=== PATIENT | female | born 1965 | race Caucasian/White ===

== ENCOUNTER → 2016-05-04 | Outpatient (REF) | payer BC ==
[~2016-05-04] MED LIST: EFFE75CA75 OR; LEVO2TA PO; SYNT175T PO; YAZ3TAB2 PO
== END ==
LOC: M SFHCPLAZ 10:29
PROVIDERS: ATTEND Family Medicine
DX: M79.644 Pain in right finger(s) (principal)

== ENCOUNTER → 2016-05-04 | Outpatient (CLI) | payer BC ==
--- NOTE | 2016-05-04 11:55 | REP ---
Clinical: Pain to the digits. Technique: AP, lateral views of the right and left hand. Findings: Mild diffuse arthritic degenerative changes to the interphalangeal joints and first metacarpophalangeal joint includes joint space narrowing and subtle subchondral sclerosis. No acute fracture or dislocation. Impression: Mild diffuse arthritic changes to the interphalangeal joints. Signed by Rolf Contreras MD 05/04/2016 11:47 A
== END | disposition home or self-care (01) ==
LOC: M RAD 11:14
PROVIDERS: ATTEND Family Medicine
DX: M79.644 Pain in right finger(s) (principal); M19.041 Primary osteoarthritis, right hand; M19.042 Primary osteoarthritis, left hand; M18.0 Bilateral primary osteoarthritis of first carpometacarpal joints

== ENCOUNTER → 2016-05-29 | Outpatient (REF) | payer BC | LOC: M SFHCPLAZ 07:53 | PROVIDERS: ATTEND Physician Assistant | DX: E78.4 Other hyperlipidemia (principal) ==

== ENCOUNTER → 2016-06-12 | Outpatient (REF) | payer BC | LOC: M LAB REF 12:13 | PROVIDERS: ATTEND Physician Assistant Medical | DX: J02.9 Acute pharyngitis, unspecified (principal) ==

== ENCOUNTER → 2016-06-15 | Outpatient (REF) | payer BC ==
[2016-06-15 12:20] LABS: ALBUMIN 3.7 GM/DL (3.2-5.2); ALBUMIN/GLOBULIN RATIO 1.09 (1.00-1.93); ALKALINE PHOSPHATASE 82 U/L (45-117); ALT/SGPT 20 U/L (12-78); ANION GAP 7 MEQ/L (8-16); AST/SGOT 16 U/L (15-37); BILIRUBIN,TOTAL 0.4 MG/DL (0.2-1.0); BLOOD UREA NITROGEN 22 MG/DL (7-18); CALCIUM LEVEL 8.5 MG/DL (8.5-10.1); CARBON DIOXIDE LEVEL 26 MEQ/L (21-32); CHLORIDE LEVEL 106 MEQ/L (98-107); CHOLESTEROL LEVEL 201 MG/DL (<200); CREATININE FOR GFR 0.77 MG/DL (0.55-1.02); GLOMERULAR FILTRATION RATE > 60.0 (>51); GLUCOSE, FASTING 100 MG/DL (70-105); POTASSIUM SERUM 4.2 MEQ/L (3.5-5.1); SODIUM LEVEL 139 MEQ/L (136-145); TOTAL PROTEIN 7.1 GM/DL (6.4-8.2); TRIGLYCERIDES LEVEL 107 MG/DL (<150)
== END ==
LOC: M LABDRAW1 11:22
PROVIDERS: ATTEND Physician Assistant
DX: E78.4 Other hyperlipidemia (principal)

== ENCOUNTER → 2016-08-02 | Outpatient (REF) | payer BC ==
[2016-08-02 14:27] LABS: FREE T4 1.67 NG/DL (0.76-1.46)
== END ==
LOC: M LABDRAW1 12:01
PROVIDERS: ATTEND Internal Medicine Endocrinology, Diabetes & Metabolism
DX: E89.0 Postprocedural hypothyroidism (principal)

== ENCOUNTER → 2016-08-02 | Outpatient (REF) | payer BC ==
[2016-08-02 13:44] LABS: BASO % 0.3 % (0.0-1.0); EOS # 0.2 K/mm3 (0.0-0.50); EOS % 3.8 % (0.0-3.0); LARGE UNSTAINED CELL # 0.1 K/mm3 (0.0-0.4); LARGE UNSTAINED CELL % 1.7 % (0.0-4.0); LYMPH # 1.6 K/mm3 (1.5-4.5); LYMPH % 30.4 % (24.0-44.0); MEAN CORPUSCULAR HGB CONC 32.8 g/dl (32.0-36.5); MEAN CORPUSCULAR VOLUME 88.5 fl (80.0-96.0); MONO # 0.3 K/mm3 (0.0-0.8); MONO % 5.8 % (0.0-5.0); NEUTROPHILS # 3.1 K/mm3 (1.8-7.7); NEUTROPHILS % 57.9 % (36.0-66.0); PLATELET COUNT, AUTOMATED 291 k/mm3 (150-450); RED CELL DISTRIBUTION WIDTH 13.6 % (11.5-14.5); WHITE BLOOD COUNT 5.4 K/mm3 (4.0-10.0)
[2016-08-02 13:59] LABS: VITAMIN B12 LEVEL 544 PG/ML (247-911)
[2016-08-02 14:01] LABS: ALBUMIN 3.6 GM/DL (3.2-5.2); ALKALINE PHOSPHATASE 60 U/L (45-117); ALT/SGPT 21 U/L (12-78); ANION GAP 8 MEQ/L (8-16); AST/SGOT 17 U/L (15-37); BILIRUBIN,TOTAL 0.4 MG/DL (0.2-1.0); BLOOD UREA NITROGEN 10 MG/DL (7-18); CALCIUM LEVEL 8.8 MG/DL (8.5-10.1); CARBON DIOXIDE LEVEL 27 MEQ/L (21-32); CHLORIDE LEVEL 104 MEQ/L (98-107); CREATININE FOR GFR 0.68 MG/DL (0.55-1.02); FERRITIN 123 NG/ML (8-252); GLOMERULAR FILTRATION RATE > 60.0 (>51); GLUCOSE, FASTING 80 MG/DL (70-105); MAGNESIUM LEVEL 2.4 MG/DL (1.8-2.4); PERCENT SATURATION 23.2 % (13.2-37.4); PHOSPHORUS LEVEL 3.3 MG/DL (2.5-4.9); POTASSIUM SERUM 4.4 MEQ/L (3.5-5.1); SODIUM LEVEL 139 MEQ/L (136-145); TOTAL IRON BINDING CAPACITY 207 UG/DL (250-450); TOTAL PROTEIN 6.6 GM/DL (6.4-8.2)
[2016-08-03 10:10] LABS: PRETREATED FOLATE FOR RBCFOL 13.4 NG/ML
== END ==
LOC: M LABDRAW1 12:02
PROVIDERS: ATTEND Surgery
DX: K91.2 Postsurgical malabsorption, not elsewhere classified (principal); Z98.84 Bariatric surgery status

== ENCOUNTER → 2016-10-16 | Outpatient (REF) | payer BC ==
[2016-10-16 12:46] LABS: FREE T4 1.68 NG/DL (0.76-1.46)
== END ==
LOC: M LABDRAW1 10:56
PROVIDERS: ATTEND Internal Medicine Endocrinology, Diabetes & Metabolism
DX: E89.0 Postprocedural hypothyroidism (principal)

== ENCOUNTER → 2016-12-11 | Outpatient (REF) | payer BC ==
[2016-12-11 22:41] LABS: FREE T4 1.52 NG/DL (0.76-1.46)
== END ==
LOC: M LABDRAW1 10:30
PROVIDERS: ATTEND Internal Medicine Endocrinology, Diabetes & Metabolism
DX: E89.0 Postprocedural hypothyroidism (principal)

== ENCOUNTER → 2016-12-11 | Outpatient (REF) | payer BC ==
[2016-12-11 11:39] LABS: BASO # 0.1 10^3/uL (0.0-0.2); BASO % 1.1 % (0.0-1.0); EOS # 0.2 10^3/uL (0.0-0.50); EOS % 4.6 % (0.0-3.0); IMMATURE GRANULOCYTE % 0.2 % (0-0); LYMPH # 1.8 10^3/uL (1.5-4.5); LYMPH % 40.1 % (24.0-44.0); MEAN CORPUSCULAR HEMOGLOBIN 29.6 pg (27.0-33.0); MEAN CORPUSCULAR HGB CONC 33.6 g/dl (32.0-36.5); MEAN CORPUSCULAR VOLUME 88.1 fl (80.0-96.0); MONO # 0.3 10^3/uL (0.0-0.8); MONO % 6.9 % (0.0-5.0); NEUTROPHILS # 2.1 10^3/uL (1.8-7.7); NEUTROPHILS % 47.1 % (36.0-66.0); PLATELET COUNT, AUTOMATED 305 10^3/uL (150-450); RED CELL DISTRIBUTION WIDTH 12.5 % (11.5-14.5); WHITE BLOOD COUNT 4.4 10^3/uL (4.0-10.0)
[2016-12-11 11:40] LABS: ADD MANUAL DIFFER NO; DIFF SLIDE NUMBER 189
[2016-12-11 12:32] LABS: VITAMIN B12 LEVEL > 2000 PG/ML (247-911)
[2016-12-11 12:49] LABS: ALBUMIN 3.6 GM/DL (3.2-5.2); ALBUMIN/GLOBULIN RATIO 1.13 (1.00-1.93); ALKALINE PHOSPHATASE 69 U/L (45-117); ALT/SGPT 18 U/L (12-78); ANION GAP 6 MEQ/L (8-16); AST/SGOT 10 U/L (15-37); BILIRUBIN,TOTAL 0.5 MG/DL (0.2-1.0); BLOOD UREA NITROGEN 15 MG/DL (7-18); CALCIUM LEVEL 8.9 MG/DL (8.5-10.1); CARBON DIOXIDE LEVEL 27 MEQ/L (21-32); CHLORIDE LEVEL 106 MEQ/L (98-107); CREATININE FOR GFR 0.74 MG/DL (0.55-1.02); FERRITIN 133 NG/ML (8-252); GLOMERULAR FILTRATION RATE > 60.0 (>51); GLUCOSE, FASTING 93 MG/DL (70-105); MAGNESIUM LEVEL 2.3 MG/DL (1.8-2.4); PHOSPHORUS LEVEL 3.8 MG/DL (2.5-4.9); POTASSIUM SERUM 4.1 MEQ/L (3.5-5.1); SODIUM LEVEL 139 MEQ/L (136-145); TOTAL PROTEIN 6.8 GM/DL (6.4-8.2)
[2016-12-14 12:27] LABS: PRETREATED FOLATE FOR RBCFOL 15.1 NG/ML
== END ==
LOC: M LABDRAW1 10:27
PROVIDERS: ATTEND Surgery
DX: K91.2 Postsurgical malabsorption, not elsewhere classified (principal); E61.1 Iron deficiency; E55.9 Vitamin D deficiency, unspecified; Z98.84 Bariatric surgery status

== ENCOUNTER → 2017-02-13 | Outpatient (REF) | payer BC ==
[~2017-02-13] MED LIST changes: +CALC500T49 PO; +DULO1CAP3 PO; +FERR325T3 PO; +LEVO125T41 PO; +MULTLIQ7 PO; +PROT1TAB2 PO; +VITA100L PO; +VITA400T13 PO
[2017-02-13 16:11] LABS: FREE T4 1.22 NG/DL (0.76-1.46)
== END ==
LOC: M LABDRAW1 13:46
PROVIDERS: ATTEND Nurse Practitioner Family
DX: E89.0 Postprocedural hypothyroidism (principal)

== ENCOUNTER 2017-02-17 00:58 | Emergency (ER) | payer BC ==
[~2017-02-17] VITALS: Ht 172.7 cm; Wt 77.3 kg
[~2017-02-17 00:58] MED LIST changes: -CALC500T49 PO; -DULO1CAP3 PO; -FERR325T3 PO; -LEVO125T41 PO; -MULTLIQ7 PO; -PROT1TAB2 PO; -VITA100L PO; -VITA400T13 PO
[2017-02-17] MEDS ORDERED: LEVO125T41 PO (01:10)
[2017-02-17] MEDS ORDERED: DULO1CAP3 PO (01:10)
[2017-02-17] MEDS ORDERED: MULTLIQ7 PO (01:12)
[2017-02-17] MEDS ORDERED: CALC500T49 PO (01:12)
[2017-02-17] MEDS ORDERED: VITA400T13 PO (01:12)
[2017-02-17] MEDS ORDERED: VITA100L PO (01:12)
[2017-02-17] MEDS ORDERED: FERR325T3 PO (01:12)
[2017-02-17 02:00] LABS: BASO % 0.5 % (0.0-1.0); EOS # 0.2 10^3/uL (0.0-0.50); EOS % 2.1 % (0.0-3.0); IMMATURE GRANULOCYTE % 0.3 % (0-0); LYMPH # 1.6 10^3/uL (1.5-4.5); LYMPH % 20.9 % (24.0-44.0); MEAN CORPUSCULAR HEMOGLOBIN 29.8 pg (27.0-33.0); MEAN CORPUSCULAR HGB CONC 33.6 g/dl (32.0-36.5); MEAN CORPUSCULAR VOLUME 88.6 fl (80.0-96.0); MONO # 0.5 10^3/uL (0.0-0.8); MONO % 6.3 % (0.0-5.0); NEUTROPHILS # 5.3 10^3/uL (1.8-7.7); NEUTROPHILS % 69.9 % (36.0-66.0); PLATELET COUNT, AUTOMATED 272 10^3/uL (150-450); RED CELL DISTRIBUTION WIDTH 12.1 % (11.5-14.5); WHITE BLOOD COUNT 7.6 10^3/uL (4.0-10.0)
[2017-02-17] MEDS ORDERED: NS 1,000 ML IV ONE (02:00)
[2017-02-17] MEDS ORDERED: GASTROGRAFIN SOLUTION 30ML PO ONE (02:20)
[2017-02-17] MEDS ORDERED: GASTROGRAFIN SOLUTION 30ML (Q9963) As Ordered ONE (02:23)
[2017-02-17 02:26] LABS: ALBUMIN 3.6 GM/DL (3.2-5.2); ALBUMIN/GLOBULIN RATIO 0.97 (1.00-1.93); ALKALINE PHOSPHATASE 71 U/L (45-117); ALT/SGPT 36 U/L (12-78); ANION GAP 8 MEQ/L (8-16); AST/SGOT 45 U/L (7-37); BILIRUBIN,DIRECT < 0.1 MG/DL (0.0-0.2); BILIRUBIN,TOTAL 0.3 MG/DL (0.2-1.0); BLOOD UREA NITROGEN 21 MG/DL (7-18); CALCIUM LEVEL 8.8 MG/DL (8.5-10.1); CARBON DIOXIDE LEVEL 27 MEQ/L (21-32); CHLORIDE LEVEL 104 MEQ/L (98-107); CREATININE FOR GFR 0.77 MG/DL (0.55-1.02); GLOMERULAR FILTRATION RATE > 60.0 (>51); GLUCOSE, FASTING 111 MG/DL (70-105); SODIUM LEVEL 139 MEQ/L (136-145); TOTAL PROTEIN 7.3 GM/DL (6.4-8.2)
[2017-02-17] MEDS ORDERED: GASTROGRAFIN SOLUTION 30ML (Q9963) PO ONE (02:50)
[2017-02-17] MEDS ORDERED: ISOVUE-370 76% 100ML VIAL (Q9967) As Ordered ONE (03:20)
--- NOTE | 2017-02-17 05:20 | REPUSA ---
CLINICAL HISTORY: Abdominal pain. TECHNIQUE: Multiple axial, sagittal and coronal CT images were obtained through the abdomen and pelvi s after administration of oral and intravenous contrast material. COMMENTS: The liver is of uniform attenuation without mass or defect. There is no intra or extrahepatic biliary ductal dilatation. The spleen is normal. The gallbladder is surgically absent. The pancreas is of no rmal contour and attenuation characteristics. There is no evidence of adrenal mass. Both kidneys demonstrate prompt and equal nephrograms. The kidneys are normal in size, shape and conf iguration. There is no evidence of renal or ureteral mass. No renal or ureteral calculi are identifie d. There is no hydroureter or hydronephrosis. Surgical clips are noted in th association with the stomach. No evidence for appendicitis. There is no bowel wall thickening. No evidence for small or large benja l obstruction. There is no evidence of abdominal ascites or lymphadenopathy. There is no evidence of intrinsic or extrinsic bladder mass. There is no pelvic ascites or lymphadeno winston. The uterus and ovaries are grossly WNL. Images of the lung bases show no evidence of pleural or parenchymal mass. There are no pleural effusi ons. The bony structures are free of lytic or blastic lesions. Grade 1 anterolisthesis of L4 on L5 is not ed. IMPRESSION: No evidence of acute abdominal or pelvic pathology. Thank you for your kind referral of this patient.
[2017-02-17] MEDS ORDERED: PROT1TAB2 PO (05:39)
[2017-02-17 05:49] VITALS: BP 119/80
--- NOTE | 2017-02-17 08:06 | ECGEPIP ---
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
== END 2017-02-17 06:00 | disposition home or self-care (01) ==
LOC: M ED 00:58
DX: K29.00 Acute gastritis without bleeding (principal); Z98.84 Bariatric surgery status
CPT/HCPCS: 74177; 80048; 80076; 81001; 82550; 82553; 83690; 85025; 87086; 93005; 96360; 96361; 99284; Q9963; Q9967

== ENCOUNTER → 2017-04-22 | Outpatient (REF) | payer BC | LOC: M SFHCPLAZ 15:37 | DX: J02.9 Acute pharyngitis, unspecified (principal) ==

== ENCOUNTER → 2017-06-05 | Outpatient (REF) | payer BC ==
[2017-06-05 12:37] LABS: FREE T4 0.99 NG/DL (0.76-1.46)
== END ==
LOC: M LABDRAW1 11:59
DX: E89.0 Postprocedural hypothyroidism (principal)
CPT/HCPCS: 84443

== ENCOUNTER → 2017-06-05 | Outpatient (REF) | payer BC ==
[2017-06-05 12:18] LABS: BASO # 0.1 10^3/uL (0.0-0.2); EOS # 0.2 10^3/uL (0.0-0.50); EOS % 4.3 % (0.0-3.0); HEMATOCRIT 36.6 % (36.0-47.0); HEMOGLOBIN 12.2 g/dl (12.0-16.0); IMMATURE GRANULOCYTE % 0.2 % (0-3.0); LYMPH # 1.6 10^3/uL (1.5-4.5); LYMPH % 32.6 % (24.0-44.0); MEAN CORPUSCULAR HEMOGLOBIN 29.5 pg (27.0-33.0); MEAN CORPUSCULAR HGB CONC 33.3 g/dl (32.0-36.5); MEAN CORPUSCULAR VOLUME 88.6 fl (80.0-96.0); MONO # 0.3 10^3/uL (0.0-0.8); MONO % 6.6 % (0.0-5.0); NEUTROPHILS # 2.7 10^3/uL (1.8-7.7); NEUTROPHILS % 55.3 % (36.0-66.0); PLATELET COUNT, AUTOMATED 268 10^3/uL (150-450); RED BLOOD COUNT 4.13 10^6/uL (4.00-5.40); RED CELL DISTRIBUTION WIDTH 12.4 % (11.5-14.5); WHITE BLOOD COUNT 4.9 10^3/uL (4.0-10.0)
[2017-06-05 12:20] LABS: HEMATOCRIT 36.6 % (36.0-47.0)
[2017-06-05 12:34] LABS: ALBUMIN 3.6 GM/DL (3.2-5.2); ALBUMIN/GLOBULIN RATIO 1.13 (1.00-1.93); ALKALINE PHOSPHATASE 70 U/L (45-117); ALT/SGPT 20 U/L (12-78); ANION GAP 7 MEQ/L (8-16); AST/SGOT 12 U/L (7-37); BILIRUBIN,TOTAL 0.4 MG/DL (0.2-1.0); BLOOD UREA NITROGEN 14 MG/DL (7-18); CALCIUM LEVEL 8.9 MG/DL (8.5-10.1); CARBON DIOXIDE LEVEL 27 MEQ/L (21-32); CHLORIDE LEVEL 106 MEQ/L (98-107); CREATININE FOR GFR 0.81 MG/DL (0.55-1.30); FERRITIN 135 NG/ML (8-252); GLOMERULAR FILTRATION RATE > 60.0 (>51); GLUCOSE, FASTING 112 MG/DL (70-100); IRON (FE) 74 UG/DL (50-170); MAGNESIUM LEVEL 2.2 MG/DL (1.8-2.4); PERCENT SATURATION 31.9 % (13.2-45.0); PHOSPHORUS LEVEL 4.2 MG/DL (2.5-4.9); SODIUM LEVEL 140 MEQ/L (136-145); TOTAL IRON BINDING CAPACITY 232 UG/DL (250-450); TOTAL PROTEIN 6.8 GM/DL (6.4-8.2); VITAMIN B12 LEVEL > 2000 PG/ML (247-911)
[2017-06-05 14:16] LABS: ESTIMATED AVERAGE GLUCOSE 97 MG/DL (60-110)
[2017-06-07 12:10] LABS: PRETREATED FOLATE FOR RBCFOL 10.5 NG/ML; RBC FOLATE 602.5 NG/ML (280-791)
== END ==
LOC: M LABDRAW1 12:00
DX: K91.2 Postsurgical malabsorption, not elsewhere classified (principal); E55.9 Vitamin D deficiency, unspecified; Z98.84 Bariatric surgery status
CPT/HCPCS: 83550

== ENCOUNTER → 2017-12-04 | Outpatient (REF) | payer BC ==
[2017-12-04 11:05] LABS: BASO # 0.1 10^3/uL (0.0-0.2); BASO % 1.1 % (0.0-1.0); EOS # 0.2 10^3/uL (0.0-0.50); HEMATOCRIT 35.6 % (36.0-47.0); HEMOGLOBIN 12.2 g/dl (12.0-15.5); LYMPH # 1.7 10^3/uL (1.5-4.5); LYMPH % 36.5 % (24.0-44.0); MEAN CORPUSCULAR HGB CONC 34.3 g/dl (32.0-36.5); MEAN CORPUSCULAR VOLUME 87.5 fl (80.0-96.0); MONO # 0.3 10^3/uL (0.0-0.8); MONO % 7.1 % (0.0-5.0); NEUTROPHILS # 2.3 10^3/uL (1.8-7.7); NEUTROPHILS % 50.3 % (36.0-66.0); PLATELET COUNT, AUTOMATED 273 10^3/uL (150-450); RED BLOOD COUNT 4.07 10^6/uL (4.00-5.40); RED CELL DISTRIBUTION WIDTH 12.3 % (11.5-14.5); WHITE BLOOD COUNT 4.6 10^3/uL (4.0-10.0)
[2017-12-04 11:12] LABS: ALBUMIN 3.7 GM/DL (3.2-5.2); ALBUMIN/GLOBULIN RATIO 1.19 (1.00-1.93); ALKALINE PHOSPHATASE 65 U/L (45-117); ALT/SGPT 26 U/L (12-78); ANION GAP 10 MEQ/L (8-16); AST/SGOT 14 U/L (7-37); BILIRUBIN,TOTAL 0.5 MG/DL (0.2-1.0); BLOOD UREA NITROGEN 19 MG/DL (7-18); CALCIUM LEVEL 8.8 MG/DL (8.5-10.1); CARBON DIOXIDE LEVEL 25 MEQ/L (21-32); CHLORIDE LEVEL 104 MEQ/L (98-107); CREATININE FOR GFR 0.74 MG/DL (0.55-1.30); FERRITIN 109 NG/ML (8-252); GLOMERULAR FILTRATION RATE > 60.0 (>51); GLUCOSE, FASTING 97 MG/DL (70-100); IRON (FE) 77 UG/DL (50-170); MAGNESIUM LEVEL 2.3 MG/DL (1.8-2.4); POTASSIUM SERUM 4.4 MEQ/L (3.5-5.1); SODIUM LEVEL 139 MEQ/L (136-145); TOTAL PROTEIN 6.8 GM/DL (6.4-8.2)
[2017-12-04 11:18] LABS: TOTAL 25(OH) VITAMIN D 31.5 NG/ML (30.0-100.0)
[2017-12-04 12:50] LABS: ESTIMATED AVERAGE GLUCOSE 105 MG/DL (60-110); HEMOGLOBIN A1c 5.3 %
== END ==
LOC: M LABDRAW1 10:46
DX: K91.2 Postsurgical malabsorption, not elsewhere classified (principal); Z98.84 Bariatric surgery status; E55.9 Vitamin D deficiency, unspecified
CPT/HCPCS: 83540

== ENCOUNTER → 2017-12-04 | Outpatient (REF) | payer BC ==
[2017-12-04 11:17] LABS: FREE T4 1.03 NG/DL (0.76-1.46)
== END ==
LOC: M LABDRAW1 10:45
DX: E89.0 Postprocedural hypothyroidism (principal)
CPT/HCPCS: 84443

== ENCOUNTER → 2018-05-20 | Outpatient (REF) | payer BC ==
[~2018-05-20] MED LIST changes: +CALC500T49 PO; +DULO1CAP3 PO; +FERR325T3 PO; +LEVO125T41 PO; +MULTLIQ7 PO; +PROT1TAB2 PO; +VITA100L PO; +VITA400T13 PO
[2018-05-20 11:52] LABS: CHOLESTEROL RISK RATIO 2.608 (<5); FREE T4 1.01 NG/DL (0.76-1.46); THYROID STIMULATING HORMONE 3.41 uIU/ML (0.358-3.740)
[2018-05-20 11:54] LABS: TOTAL 25(OH) VITAMIN D 42.9 NG/ML (30.0-100.0)
[2018-05-20 14:05] LABS: HEMOGLOBIN A1c 5.4 %
== END ==
LOC: M SFHCPLAZ 09:03
PROVIDERS: ATTEND Family Medicine
DX: Z13.1 Encounter for screening for diabetes mellitus (principal); E03.9 Hypothyroidism, unspecified; E78.49 Other hyperlipidemia; F32.9 Major depressive disorder, single episode, unspecified

== ENCOUNTER → 2018-08-06 | Outpatient (CLI) | payer BC ==
[2018-08-06 10:19] LABS: BASO % 0.6 % (0.0-1.0); EOS # 0.2 10^3/uL (0.0-0.50); EOS % 3.1 % (0.0-3.0); HEMATOCRIT 36.7 % (36.0-47.0); HEMOGLOBIN 12.1 g/dl (12.0-15.5); LYMPH # 2.6 10^3/uL (1.5-4.5); LYMPH % 40.3 % (24.0-44.0); MEAN CORPUSCULAR HEMOGLOBIN 29.2 pg (27.0-33.0); MEAN CORPUSCULAR VOLUME 88.4 fl (80.0-96.0); MONO # 0.5 10^3/uL (0.0-0.8); MONO % 7.2 % (0.0-5.0); NEUTROPHILS # 3.1 10^3/uL (1.8-7.7); NEUTROPHILS % 48.6 % (36.0-66.0); PLATELET COUNT, AUTOMATED 301 10^3/uL (150-450); RED BLOOD COUNT 4.15 10^6/uL (4.00-5.40); WHITE BLOOD COUNT 6.4 10^3/uL (4.0-10.0)
[2018-08-06 10:38] LABS: GLUCOSE, FASTING 72 MG/DL (70-100)
[2018-08-06 10:39] LABS: BLOOD UREA NITROGEN 19 MG/DL (7-18); CALCIUM LEVEL 8.6 MG/DL (8.5-10.1); CARBON DIOXIDE LEVEL 29 MEQ/L (21-32); CHLORIDE LEVEL 106 MEQ/L (98-107); CREATININE FOR GFR 0.77 MG/DL (0.55-1.30); GLOMERULAR FILTRATION RATE > 60.0 (>51); POTASSIUM SERUM 4.1 MEQ/L (3.5-5.1); SODIUM LEVEL 142 MEQ/L (136-145)
== END ==
LOC: M LAB 09:33
PROVIDERS: ATTEND Internal Medicine Cardiovascular Disease
DX: Z01.810 Encounter for preprocedural cardiovascular examination (principal)

== ENCOUNTER 2018-08-14 12:33 | Emergency (ER) | payer BC ==
[~2018-08-14] VITALS: Ht 172.7 cm; Wt 81.8 kg
[2018-08-14] MEDS ORDERED: ASPIRIN 81 MG CHEW TABLET PO ONE (13:00)
[2018-08-14 13:14] LABS: BASO # 0.1 10^3/uL (0.0-0.2); BASO % 1.1 % (0.0-1.0); EOS # 0.3 10^3/uL (0.0-0.50); EOS % 3.3 % (0.0-3.0); HEMATOCRIT 36.7 % (36.0-47.0); HEMOGLOBIN 12.5 g/dl (12.0-15.5); LYMPH # 2.2 10^3/uL (1.5-4.5); LYMPH % 28.9 % (24.0-44.0); MEAN CORPUSCULAR HEMOGLOBIN 30.6 pg (27.0-33.0); MEAN CORPUSCULAR HGB CONC 34.1 g/dl (32.0-36.5); MONO # 0.5 10^3/uL (0.0-0.8); MONO % 7.2 % (0.0-5.0); NEUTROPHILS # 4.5 10^3/uL (1.8-7.7); NEUTROPHILS % 59.4 % (36.0-66.0); PLATELET COUNT, AUTOMATED 310 10^3/uL (150-450); RED BLOOD COUNT 4.08 10^6/uL (4.00-5.40); WHITE BLOOD COUNT 7.5 10^3/uL (4.0-10.0)
[2018-08-14 13:23] LABS: INR 0.93; PROTHROMBIN TIME 12.6 SECONDS (12.1-14.4)
[2018-08-14 13:24] LABS: PARTIAL THROMBOPLASTIN TIME 31.7 SECONDS (25.4-37.6)
[2018-08-14 13:51] LABS: ALBUMIN 3.7 GM/DL (3.2-5.2); ALT/SGPT 27 U/L (12-78); BILIRUBIN,DIRECT < 0.1 MG/DL (0.0-0.2); BILIRUBIN,TOTAL 0.3 MG/DL (0.2-1.0); BLOOD UREA NITROGEN 15 MG/DL (7-18); CALCIUM LEVEL 8.9 MG/DL (8.5-10.1); CARBON DIOXIDE LEVEL 27 MEQ/L (21-32); CHLORIDE LEVEL 105 MEQ/L (98-107); CPK CREATINE PHOSPHOKINASE 95 U/L (26-192); CREATININE FOR GFR 0.81 MG/DL (0.55-1.30); GLOMERULAR FILTRATION RATE > 60.0 (>51); GLUCOSE, FASTING 87 MG/DL (70-100); LIPASE 123 U/L (73-393); MB/CK RELATIVE INDEX 1.26 (< OR =4); NT-PRO BNP 115 PG/ML (<125); POTASSIUM SERUM 4.2 MEQ/L (3.5-5.1); SODIUM LEVEL 138 MEQ/L (136-145); TROPONIN I < 0.02 NG/ML (< 0.10)
--- NOTE | 2018-08-14 14:11 | REP ---
REASON: Chest pain. COMPARISON: 09/14/2013, the latest prior. FINDINGS: The technique utilized in obtaining the radiograph has magnified the cardiac silhouette and accentuated the interstitial markings. The superior mediastinal structures are midline. The cardiac silhouette is unremarkable in size, shape, and position. The diaphragmatic surfaces of the lungs are regular, and the costophrenic angles are clear. The pulmonary alonzo are clear. The imaged osseous structures are intact. IMPRESSION: There is no acute cardiopulmonary disease. No significant change from the prior exam. Electronically Signed by Ivan Schwarz DO 08/14/2018 03:36 P
[2018-08-14 14:15] LABS: ERYTHROCYTE SEDIMENTATION RATE 20 mm/hr (0-30)
[2018-08-14 16:48] LABS: CK-MB VALUE MASS < 1.0 NG/ML (<3.6); CPK CREATINE PHOSPHOKINASE 67 U/L (26-192); MB/CK RELATIVE INDEX 1.49 (< OR =4); TROPONIN I < 0.02 NG/ML (< 0.10)
[2018-08-14 17:28] VITALS: BP 118/75
--- NOTE | 2018-08-16 08:07 | ECGEPIP ---
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
--- NOTE | 2018-08-16 08:10 | ECGEPIP ---
[facility] - ED Test Date: 2018-08-14 Pat Name: DAMARI SMITH Department: Room: - Gender: Female Learning Designer: JRoslyn : 1965 Requested By: JUAN JOSE Cottrell Order Number: [id number] Reading MD: Juan Jose Ayers Measurements Intervals [place] Rate: 80 P: 20 GA: 148 QRS: 34 QRSD: 95 T: QT: 401 QTc: 465 Interpretive Statements SINUS RHYTHM Borderline prolonged QT interval NONSPECIFIC T-WAVE ABNORMALITY Similar to tracing done 12:46 on the same day Electronically Signed on 08-16-2018 8:10:44 EDT by Juan Jose Ayers
== END 2018-08-14 17:29 | disposition short-term general hospital (02) ==
LOC: M ED 12:33
DX: I35.0 Nonrheumatic aortic (valve) stenosis (principal); I20.0 Unstable angina; Z79.899 Other long term (current) drug therapy; Z88.8 Allergy status to other drugs, medicaments and biological substances

== ENCOUNTER 2018-08-30 09:19 | Emergency (ER) | payer BC ==
[~2018-08-30] VITALS: Ht 172.7 cm; Wt 80.1 kg
[2018-08-30] MEDS ORDERED: SUCR1TA PO (09:54)
[2018-08-30] MEDS ORDERED: MAGN400C PO (09:54)
[2018-08-30] MEDS ORDERED: ASPI81TA85 PO (09:54)
[2018-08-30] MEDS ORDERED: METO25TA4 PO (09:54)
[2018-08-30] MEDS ORDERED: DULO30CA9 PO (09:54)
[2018-08-30] MEDS ORDERED: FERR325T16 PO (09:54)
[2018-08-30] MEDS ORDERED: ATOR1TAB19 PO (09:54)
[2018-08-30] MEDS ORDERED: ESOM1CAP5 PO (09:54)
[2018-08-30] MEDS ORDERED: ACET-683 PO (09:54)
[2018-08-30] MEDS ORDERED: diphenhydrAMINE 50 MG CAP PO ONE (10:15)
[2018-08-30] MEDS ORDERED: methylPREDNISolone INJ 125 MG/2 ML VIAL (J2930) IM ONE (10:15)
[2018-08-30] MEDS ORDERED: PRED20TA PO (10:25)
[2018-08-30 10:53] VITALS: BP 119/74
== END 2018-08-30 10:55 | disposition home or self-care (01) ==
LOC: M ED 09:19
DX: L50.9 Urticaria, unspecified (principal); E05.00 Thyrotoxicosis with diffuse goiter without thyrotoxic crisis or storm; I35.0 Nonrheumatic aortic (valve) stenosis; Z79.899 Other long term (current) drug therapy; Z79.82 Long term (current) use of aspirin; Z79.890 Hormone replacement therapy; Z88.8 Allergy status to other drugs, medicaments and biological substances
CPT/HCPCS: 96372; 99284; J2930

== ENCOUNTER → 2018-09-04 | Outpatient (REF) | payer BC ==
[~2018-09-04] MED LIST changes: +ACET-683 PO; +ASPI81TA85 PO; +ATOR1TAB19 PO; +DULO30CA9 PO; +ESOM1CAP5 PO; +FERR325T16 PO; +MAGN400C PO; +METO25TA4 PO; +PRED20TA PO; +SUCR1TA PO
[2018-09-04 12:54] LABS: CHOLESTEROL RISK RATIO 2.857 (<5)
== END ==
LOC: M LABDRAW1 11:57
PROVIDERS: ATTEND Physician Assistant
DX: I25.10 Atherosclerotic heart disease of native coronary artery without angina pectoris (principal)

== ENCOUNTER → 2018-10-08 | Outpatient (RCR) | payer BC ==
--- NOTE | 2018-09-26 13:27 | CARECAPL ---
Assessment Account #s: Initial Assessment General Diagnoses: AVR Date of event: Aug 18, 2018 Physician: Juan Jose Ragsdale Allergies: Coded Allergies: Lipitor (Verified Allergy, Severe, 09/26/18) hives methimazole (Verified Allergy, Intermediate, hives, 08/14/18) Date Entered Program: Sep 26, 2018 Risk strat for cardiac event: High Exercise Assessment: Initial Assessment Exercise Prescription Plan Educate and increase endurance and flexibility through monitored exercise Modalities initiated: Treadmill (will add speed 2.0 for 10 minutes), Nustep (will add resistance 2 for 10 minutes), Arm Aerometer (will add resistance 1.0 for 8 minutes), Dumbells (will add 1lb weights 2 sets 10 reps), Recumbent Bike (will add resistance 1 for 5 minutes) Frequency: 2-3 Duration (Minutes) 30-60 minutes total exercise a day. 15-20 work intervals in minutes. prn rest intervals in minutes. Functional Capacity Goal Sustained Metabolic Equivalent of a task (MET) goal of 3.0-4.0 for 15-20 minutes. Intensity: 3-Moderate Progression (METS) Increase by: 0.5 METS every: 3-5 sessions Angina with ex: No Target Heart Rate rest + 35-40 per beta luis carlos therapy Hypertension: No Hypertension controlled with: Medication (metprolol) Medications Scheduled Aspirin (Aspir 81), 1 TAB PO DAILY, (Reported) Calcium (Calcium), 500 MG PO DAILY, (Reported) Dicyclomine HCl (Dicyclomine HCl), 20 MG PO TID, (Reported) Duloxetine Hcl (Duloxetine HCl), 60 MG PO QPM, (Reported) Duloxetine Hcl (Duloxetine HCl), 30 CAP PO QAM, (Reported) Esomeprazole Magnesium (Esomeprazole Magnesium), 40 CAP PO DAILY, (Reported) Estradiol (Imvexxy), 4 MCG VG 2XW, (Reported) Ferrous Gluconate (Ferrous Gluconate), 325 TAB PO BID, (Reported) Levothyroxine Sodium (Levoxyl), 125 MCG PO DAILY, (Reported) Magnesium Oxide (Magnesium), 400 CAP PO DAILY, (Reported) Metoprolol Tartrate (Metoprolol Tartrate), 25 TAB PO BID, (Reported) Sucralfate (Sucralfate), 1 GRAM PO QID, (Reported) Miscellaneous Medications Cholecalciferol (Vitamin D-3), 400 UNIT PO, (Reported) Multivit-Minerals/Ferrous Fum (Multivitamin Liquid), 1 LIQ PO, (Reported) Discontinued Medications Acetaminophen (Acetaminophen), 2 TAB PO Q4HP, (Reported) Discontinued Reason: Pt states not taking Atorvastatin Calcium (Atorvastatin Calcium), 1 TAB PO DAILY, (Reported) Discontinued Reason: PCP discontinued med Cyanocobalamin (Vitamin B 12), 100 MCG PO, (Reported) Discontinued Reason: Pt states not taking Prednisone (Prednisone), 20 MG PO ASDIRECTED Discontinued Reason: PCP discontinued med Target Goals Individual exercise Rx (1) BP 140/90 or 130/80 if DM or CKD (1) Aerobic active 30+min 5 days per week (1) Nutrition Date: Sep 26, 2018 Assessment: Initial Assessment Lipid- med/supplement none Monitor Blood Sugar at home: No Weight Management Weight (lbs): 180.6 Height (inches): 68 Waist Circumference (Inches): 41 BMI: 27.37 Weight goal: 165 Special Diet: mediteranean diet Vitamin/Supplements: Multivitamin, Vitamin C, Vitamin D Alcohol: none Diet Access Tool: Rate your plate Score: 62 Intervention Receiving Manager Consult: No Nurse/patient discussion: No Dietary Goals eat healthier portions Diet Class: No Target goal LDL-C<100 if triglycerides are >200 Non-HDL-C should be <130 (1) LDL-C<70 for high risk patients (4) HbA1c<7% (1) BMI<25 Waist cir<40in M/<35in F (1) Education Date: Sep 26, 2018 Assessment: Initial Assessment Knowledge Test Score: 9 Family Support: Yes Quit: never smoked Target Goals Complete cessation of tobacco use (1). Psychosocial Date: Sep 26, 2018 Assessment: Initial Assessment Psych Test (Initial/Discharge) Tool Used: CESD Score: 13 Intervention Physician Consult: No (patient already has a pyschiatrist) Psychotropic medication Cymbalta Stress Management Class: No Uses Stress Management Skills: No Target Goal Assess presence or absence of depression using a valid screening tool (1). Maximize coping skills (2). Positive support system (2). Patient/Program Goal Preventative Medication: Yes Aspirin, Yes Beta blockade Fall Risk Assess: Yes (not a fall risk) Provider Assessment Provider Assessment: Proceed with rehab Sienna Street RN Sep 26, 2018 13:27
[~2018-10-08] MED LIST changes: +DICY20TA11 PO; -DULO1CAP3 PO; +DULO1CAP6 PO; +IMVE4SUP VG
== END ==
LOC: M CR 09-26 12:16
PROVIDERS: ATTEND Internal Medicine Cardiovascular Disease
DX: Z95.2 Presence of prosthetic heart valve (principal)

== ENCOUNTER 2018-10-19 04:59 | Emergency (ER) | payer BC ==
[~2018-10-19] VITALS: Ht 172.7 cm; Wt 80.8 kg
[2018-10-19] MEDS ORDERED: CEFD1CAP8 (05:12)
[2018-10-19 05:35] LABS: BASO # 0.1 10^3/uL (0.0-0.2); BASO % 0.9 % (0.0-1.0); EOS # 0.3 10^3/uL (0.0-0.50); EOS % 4.1 % (0.0-3.0); HEMATOCRIT 38.3 % (36.0-47.0); HEMOGLOBIN 12.7 g/dl (12.0-15.5); LYMPH # 2.1 10^3/uL (1.5-4.5); LYMPH % 25.6 % (24.0-44.0); MEAN CORPUSCULAR HEMOGLOBIN 29.1 pg (27.0-33.0); MEAN CORPUSCULAR HGB CONC 33.2 g/dl (32.0-36.5); MEAN CORPUSCULAR VOLUME 87.8 fl (80.0-96.0); MONO # 0.6 10^3/uL (0.0-0.8); MONO % 6.7 % (0.0-5.0); NEUTROPHILS # 5.1 10^3/uL (1.8-7.7); NEUTROPHILS % 62.5 % (36.0-66.0); PLATELET COUNT, AUTOMATED 297 10^3/uL (150-450); RED BLOOD COUNT 4.36 10^6/uL (4.00-5.40); WHITE BLOOD COUNT 8.2 10^3/uL (4.0-10.0)
[2018-10-19 05:48] LABS: INR 1.03; PROTHROMBIN TIME 13.2 SECONDS (11.8-14.0)
[2018-10-19 05:49] LABS: PARTIAL THROMBOPLASTIN TIME 34.1 SECONDS (25.0-38.4)
[2018-10-19 05:57] LABS: BLOOD UREA NITROGEN 16 MG/DL (7-18); CALCIUM LEVEL 8.8 MG/DL (8.5-10.1); CARBON DIOXIDE LEVEL 28 MEQ/L (21-32); CHLORIDE LEVEL 107 MEQ/L (98-107); CK-MB VALUE MASS < 1.0 NG/ML (<3.6); CPK CREATINE PHOSPHOKINASE 66 U/L (26-192); CREATININE FOR GFR 0.79 MG/DL (0.55-1.30); GLOMERULAR FILTRATION RATE > 60.0 (>51); GLUCOSE, FASTING 104 MG/DL (70-100); MB/CK RELATIVE INDEX 1.52 (< OR =4); SODIUM LEVEL 139 MEQ/L (136-145); TROPONIN I < 0.02 NG/ML (< 0.10)
[2018-10-19] MEDS ORDERED: MORPHINE 4 MG/ML 1ML VIAL/SYRINGE (J2270) IV ONE (06:15)
[2018-10-19] MEDS ORDERED: ISOVUE-370 76% 100ML VIAL (Q9967) As Ordered ONE (06:18)
--- NOTE | 2018-10-19 07:15 | REPVR ---
EXAM: CT Angiography Chest With Contrast EXAM DATE/TIME: 10/19/2018 6:28 AM CLINICAL HISTORY: 53 years old, female; Chest pain; Type not specified; Additional info: Cp TECHNIQUE: Imaging protocol: Axial computed tomographic angiography images of the chest with intravenous contrast using CT angiography protocol. Coronal and sagittal reformatted images were created and reviewed. 3D rendering: MIP reconstructed images were created and reviewed. Radiation optimization: All CT scans at this facility use at least one of these dose optimization techniques: automated exposure control; mA and/or kV adjustment per patient size (includes targeted exams where dose is matched to clinical indication); or iterative reconstruction. Contrast material: ISOVUE 370;Contrast volume: 75 ml;Contrast route: IV; COMPARISON: CR PORTABLE CHEST X-RAY 08/14/2018 1:05 PM FINDINGS: Pulmonary arteries: The pulmonary arteries are not enlarged. No filling defects are seen to indicate an acute pulmonary embolism. Aorta: There is no thoracic aortic aneurysm or evidence of dissection. Thyroid: Surgical clips are seen in the visualized lower neck, likely from a prior thyroid resection. Lungs: There is somewhat patchy but fairly diffuse groundglass opacity in both lungs, more prominent in the lung bases, which may be a mild pneumonitis or mild edema. No significant interlobular septal thickening is seen. There is mild volume loss, architectural distortion, and opacity anteriorly in the inferior aspect of the right upper lobe which may be postoperative, as there are surgical clips in the adjacent anterior right chest wall Pleural space: There is a small right pleural effusion. Heart: There is a prosthetic aortic valve. The heart is normal in size. There is no significant pericardial effusion. Mediastinum: There is nonspecific mild stranding in the mediastinum in the prevascular space and AP window, of uncertain etiology, possibly postoperative. Stomach and bowel: There are surgical sutures at the stomach and small bowel, related to a gastric bypass surgery. Lymph nodes: Unremarkable. No enlarged lymph nodes. Bones/joints: Degenerative endplate changes are seen at multiple levels in the visualized spine. There is callus at the site of the subacute or chronic right anterior third rib fracture. Soft tissues: See Lungs Finding. IMPRESSION: 1. No evidence of acute pulmonary embolism. 2. Prosthetic aortic valve present. No thoracic aortic aneurysm or dissection. 3. Changes anteriorly in the inferior aspect of the right upper lobe, probably postoperative, as there are surgical clips in the adjacent anterior right chest wall. The nonspecific mild stranding in the mediastinum could be postoperative as well. Please correlate with the details and timing of the surgical history. 4. Mild patchy groundglass opacity, which may be a mild pneumonitis or mild edema. Electronically signed by: Jennifer Mueller On 10/19/2018 07:14:49 AM
[2018-10-19 09:30] VITALS: BP 123/84
[2018-10-19 09:40] LABS: CK-MB VALUE MASS < 1.0 NG/ML (<3.6); CPK CREATINE PHOSPHOKINASE 63 U/L (26-192); MB/CK RELATIVE INDEX 1.59 (< OR =4); TROPONIN I < 0.02 NG/ML (< 0.10)
--- NOTE | 2018-10-19 21:35 | ECGEPIP ---
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
--- NOTE | 2018-10-19 21:35 | ECGEPIP ---
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
--- NOTE | 2018-10-25 20:40 | ED PDOC ---
Post-Departure Follow-Up dr casey faxed formal report of cta chest for fu Tan Sotelo MD Oct 25, 2018 20:40
[2018-11-05] MEDS ORDERED: CRES5TAB PO (08:17)
== END 2018-10-19 09:59 | disposition home or self-care (01) ==
LOC: M ED 04:59
DX: R07.89 Other chest pain (principal); E78.5 Hyperlipidemia, unspecified; F32.9 Major depressive disorder, single episode, unspecified; E05.00 Thyrotoxicosis with diffuse goiter without thyrotoxic crisis or storm; Z95.2 Presence of prosthetic heart valve; Z98.84 Bariatric surgery status; Z79.82 Long term (current) use of aspirin; Z79.899 Other long term (current) drug therapy; Z88.8 Allergy status to other drugs, medicaments and biological substances; Z91.030 Bee allergy status
CPT/HCPCS: 71275; 80048; 82550; 82553; 84484; 85025; 85610; 85730; 93005; 93041; 94760; 99285; Q9967

== ENCOUNTER 2018-11-05 11:17 | Outpatient (RCR) | payer BC ==
--- NOTE | 2018-10-20 18:00 | CARECAPL ---
Assessment Account #s: Re-Assessment I General Diagnoses: AVR Date of event: Aug 18, 2018 Physician: Juan Jose Ragsdale Allergies: Coded Allergies: bee venom protein (honey bee) (Verified Allergy, Severe, 10/19/18) atorvastatin (Verified Allergy, Intermediate, HIVES, 09/26/18) hives methimazole (Verified Allergy, Intermediate, hives, 08/14/18) Date Entered Program: Sep 26, 2018 Risk strat for cardiac event: High Exercise Assessment: Re-Assessment I Exercise Prescription Plan TO EDUCATE AND BUILD ENDURANCE THROUGH MONITORED EXERCISE Modalities initiated: Treadmill (METS=3.26/RPE=2.5), Nustep (METS=5.2/RPE=3), Arm Aerometer (METS=2.9/RPE=3), Dumbells (RPE=2.5), Recumbent Bike (METS=5.4/RPE=2.5) Frequency: 3 Duration (Minutes) 30-60 minutes total exercise a day. 10-12 work intervals in minutes. 5 MIN PRN rest intervals in minutes. Functional Capacity Goal Sustained Metabolic Equivalent of a task (MET) goal of 4.0-5.0 for 15-20 chasidy lexi. Intensity: 3-Moderate Progression (METS) Increase by: 0.5 METS every: 5 sessions TOLERATED Angina with ex: No Target Heart Rate REST +35-40 Resistance Training: Yes Weight (pounds): 3 Reps: 12-15 Hypertension: Yes Hypertension controlled with: Medication (METOPROLOL) Resting 116/78 Peak Exercise BP 126/80 Medications Scheduled Aspirin (Aspir 81), 1 TAB PO DAILY, (Reported) Calcium (Calcium), 500 MG PO DAILY, (Reported) Dicyclomine HCl (Dicyclomine HCl), 20 MG PO TID, (Reported) Duloxetine Hcl (Duloxetine HCl), 60 MG PO QPM, (Reported) Duloxetine Hcl (Duloxetine HCl), 30 CAP PO QAM, (Reported) Esomeprazole Magnesium (Esomeprazole Magnesium), 40 CAP PO DAILY, (Reported) Ferrous Gluconate (Ferrous Gluconate), 325 TAB PO BID, (Reported) Levothyroxine Sodium (Levoxyl), 125 MCG PO DAILY, (Reported) Magnesium Oxide (Magnesium), 400 CAP PO DAILY, (Reported) Metoprolol Tartrate (Metoprolol Tartrate), 25 TAB PO BID, (Reported) Sucralfate (Sucralfate), 1 GRAM PO QID, (Reported) Miscellaneous Medications Cefdinir (Cefdinir), (Reported) Cholecalciferol (Vitamin D-3), 400 UNIT PO, (Reported) Multivit-Minerals/Ferrous Fum (Multivitamin Liquid), 1 LIQ PO, (Reported) Discontinued Medications Estradiol (Imvexxy), 4 MCG VG 2XW, (Reported) Discontinued Reason: Pt states not taking Current BP 100/58 Med Change: No Intervention Resistance Training: Yes Education: Self pulse (INSTRUCTED HOW TO TAKE OWN PULSE), Ex safety (REVIEWED IMPORTANCE OF WARM UP/COOL DOWN, BRINGING HEART RATE DOWN SLOWLY), S/S to report (EXPLAINED TO LET NURSES KNOW OF ANY CHEST PAIN/SOB), Low NA diet (ENCOURAGED TO FOLLOW LOW SALT DIET), BP medication (METOPROLOL), RPE Scale (REVIEWED DIFFICULTY SCALE OF 1-5 FOR EACH PIECE OF EQUIPMENT), Equipment orientation (ORIENTED TO EACH PIECE OF EQUIPMENT IN CARDIAC REHAB EXERCISE ROOM), warm up/cool down (EDUCATED ON WARM UP/COOL DOWN), Understand BP (DISCUSSED B/P AT REST AND WITH EXERCISE), Physical Active (EDUCATED ON IMPORTANCE OF CONTINUED EXERCISE FOLLOWING CARDIAC REHAB PROGRAM AT HOME) Education Goals Met: No Target Goals Individual exercise Rx (1) BP 140/90 or 130/80 if DM or CKD (1) Aerobic active 30+min 5 days per week (1) Nutrition Date: Oct 20, 2018 Assessment: Re-Assessment I Duration NONE ORDERED Med Change: No Diabetes Diabetes: No Monitor Blood Sugar at home: No Medication Change: No Blood sugar in range: No Weight Management Weight (lbs): 179.8 Weight goal: 165 Special Diet: mediteranean diet Vitamin/Supplements: Multivitamin, Vitamin D Current Weight (pounds): 179.8 Weight Goal 165 Intervention Building Surveyor Consult: No Nurse/patient discussion: Yes Dietary Goals HEART HEALTHY DIET, PORTION CONTROL Diet Class: Yes (WILL SEE ASSEMBLER DRY CELL AND BATTERY WHILE IN CLASS) Referral to Diabetes education: No Referral to lipid clinic: No Referral to weight mangement p: No Education Eating Healthy Education Goals Met: No Target goal LDL-C<100 if triglycerides are >200 Non-HDL-C should be <130 (1) LDL-C<70 for high risk patients (4) HbA1c<7% (1) BMI<25 Waist cir<40in M/<35in F (1) Education Date: Oct 20, 2018 Assessment: Re-Assessment I Learning Barriers: ready Family Support: Yes Tobacco use: No Quit: never smoked Intervention Referral to smoking cessation: No Individual education and couns: No Tobacco Adjunct: No Education class schedule given: No Attended education classes: No Education: CAD (HX OF CAD), Risk factors (HIGH CHOLESTEROL), med compliance (REVIEWED IMPORTANCE OF TAKING MEDS ORDERED), Angina S/S (REPORT ANGINA WHILE EXERCISE) Target Goals Complete cessation of tobacco use (1). Psychosocial Date: Oct 20, 2018 Assessment: Re-Assessment I Intervention Physician Consult: Yes (PATIENT IS BEING TREATED FOR DEPRESSION) Physician Referral: No Psychotropic medication CYMBALTA Med Change: No Stress Management Class: No Uses Stress Management Skills: Yes Education Education: Coping Techniques, S/S depression, Relaxation Techniques Education Goals Met: No Target Goal Assess presence or absence of depression using a valid screening tool (1). Maximize coping skills (2). Positive support system (2). Patient/Program Goal Preventative Medication: Yes Aspirin, Yes Beta blockade Fall Risk Assess: Yes (NOT A FALL RISK) Provider Assessment Session Number: 5 Provider Assessment: Proceed with rehab Bandar Ortega RN Oct 20, 2018 18:00
[~2018-11-05 11:17] MED LIST changes: +CEFD1CAP8; +CRES5TAB PO
== END 2018-11-08 ==
LOC: M CR 11:17
PROVIDERS: ATTEND Internal Medicine Cardiovascular Disease
DX: Z95.2 Presence of prosthetic heart valve (principal)

== ENCOUNTER 2018-12-05 08:47 | Outpatient (RCR) | payer BC ==
--- NOTE | 2018-11-17 13:59 | CARECAPL ---
Assessment Account #s: Re-Assessment II General Diagnoses: AVR Date of event: Aug 18, 2018 Physician: Juan Jose Ragsdale Allergies: Coded Allergies: bee venom protein (honey bee) (Verified Allergy, Severe, 10/19/18) atorvastatin (Verified Allergy, Intermediate, HIVES, 09/26/18) hives methimazole (Verified Allergy, Intermediate, hives, 08/14/18) Date Entered Program: Sep 26, 2018 Risk strat for cardiac event: High Exercise Date: Nov 17, 2018 Assessment: Re-Assessment II Stages of change: Preperation Exercise Prescription Modalities initiated: Treadmill (2.8/2.5 mts 4.3 rpe 3 15 minutes), Nustep (L4 mts 3.2 rpe 3.5 15 minutes), Arm Aerometer (2.0 mts 3.0 rpe 3 10 minutes), Dumbells, Recumbent Bike (R3 mts 6.4 rpe 3.5 8 minutes) Duration (Minutes) 30 - 60 minutes total exercise a day. 15 - 20 work intervals in minutes. PRN rest intervals in minutes. Functional Capacity Goal Sustained Metabolic Equivalent of a task (MET) goal of 4.5-5.5 for 15-20 minutes. Progression (METS) Increase by: METS every: sessions Resistance Training: Yes Weight (pounds): 4 Reps: 8-12 Hypertension: Yes Hypertension controlled with: Other (exercise) Resting 112/88 Peak Exercise BP 150/80 Meds see below Medications Scheduled Aspirin (Aspir 81), 1 TAB PO DAILY, (Reported) Calcium (Calcium), 500 MG PO DAILY, (Reported) Dicyclomine HCl (Dicyclomine HCl), 20 MG PO TID, (Reported) Duloxetine Hcl (Duloxetine HCl), 60 MG PO QPM, (Reported) Duloxetine Hcl (Duloxetine HCl), 30 CAP PO QAM, (Reported) Esomeprazole Magnesium (Esomeprazole Magnesium), 40 CAP PO DAILY, (Reported) Ferrous Gluconate (Ferrous Gluconate), 325 TAB PO BID, (Reported) Levothyroxine Sodium (Levoxyl), 125 MCG PO DAILY, (Reported) Magnesium Oxide (Magnesium), 400 CAP PO DAILY, (Reported) Rosuvastatin Calcium (Crestor), 5 MG PO DAILY, (Reported) Sucralfate (Sucralfate), 1 GRAM PO QID, (Reported) Miscellaneous Medications Cefdinir (Cefdinir), (Reported) Cholecalciferol (Vitamin D-3), 400 UNIT PO, (Reported) Multivit-Minerals/Ferrous Fum (Multivitamin Liquid), 1 LIQ PO, (Reported) Current BP 104/80 after exercise Med Change: No Intervention Resistance Training: No (will received during program) Education Goals Met: No (progressing toward goals) Target Goals Individual exercise Rx (1) BP 140/90 or 130/80 if DM or CKD (1) Aerobic active 30+min 5 days per week (1) Nutrition Date: Nov 17, 2018 Assessment: Re-Assessment II Stages of change: Preperation Intervention Diet Class: No (will see during program) Education Eating Healthy (will be discussed inlength during meeting with copying machine mechanic) Education Goals Met: No (progressing toward goals) Target goal LDL-C<100 if triglycerides are >200 Non-HDL-C should be <130 (1) LDL-C<70 for high risk patients (4) HbA1c<7% (1) BMI<25 Waist cir<40in M/<35in F (1) Education Date: Nov 17, 2018 Assessment: Re-Assessment II Intervention Education class schedule given: Yes Education Goals Met: No (see prior ITP for education details. continued throughout program) Target Goals Complete cessation of tobacco use (1). Psychosocial Date: Nov 17, 2018 Assessment: Re-Assessment II Stress Management Class: Yes Uses Stress Management Skills: Yes Education Goals Met: No (see prior ITP for educations. ) Target Goal Assess presence or absence of depression using a valid screening tool (1). Maximize coping skills (2). Positive support system (2). Provider Assessment Session Number: 9 Provider Assessment: No changes (positive attitude about program. receptive to education and exercise.) Lila Arreguin RN Nov 17, 2018 13:59
== END 2018-12-08 ==
LOC: M CR 08:47
PROVIDERS: ATTEND Internal Medicine Cardiovascular Disease
DX: Z95.2 Presence of prosthetic heart valve (principal)

== ENCOUNTER → 2018-12-08 | Outpatient (CLI) | payer BC ==
[2018-12-08 17:13] LABS: FREE T4 1.2 NG/DL (0.76-1.46); THYROID STIMULATING HORMONE 1.03 uIU/ML (0.358-3.740)
== END ==
LOC: M LAB 16:02
PROVIDERS: ATTEND Nurse Practitioner Family
DX: E89.0 Postprocedural hypothyroidism (principal)

== ENCOUNTER 2018-12-24 11:19 | Outpatient (RCR) | payer BC ==
--- NOTE | 2018-12-15 14:59 | CARECAPL ---
Assessment Account #s: Re-Assessment II (3) General Diagnoses: AVR Date of event: Aug 18, 2018 Physician: Artur Aldridge MD Allergies: Coded Allergies: bee venom protein (honey bee) (Verified Allergy, Severe, 10/19/18) atorvastatin (Verified Allergy, Intermediate, HIVES, 09/26/18) hives methimazole (Verified Allergy, Intermediate, hives, 08/14/18) Date Entered Program: Sep 26, 2018 Risk strat for cardiac event: High Exercise Date: Dec 12, 2018 Assessment: Re-Assessment II (3) Stages of change: Preperation Exercise Prescription Plan educate on cardiovascular disease and increase endurance, strength and flexibility through monitored exercise. Modalities initiated: Treadmill (speed 2.8 incline 3.0 for 15 minutes mets 4.3 RPE 3.5), Nustep (resistance of 5 for 15 minutes mets 5.5 RPE 3), Arm Aerometer (resistance of 3.0 for 10 minutes mets 2.9 RPE 3.5), Dumbells (4lb 1 set 15 reps RPE 3), Recumbent Bike (resistance of 3 for 10 minutes mets 3.7 RPE 3) Frequency: 2-3 Duration (Minutes) 30 - 60 minutes total exercise a day. 15 - 20 work intervals in minutes. PRN rest intervals in minutes. Functional Capacity Goal Sustained Metabolic Equivalent of a task (MET) goal of 5.5-6.5 for 15-20 minutes. Intensity: 3-Moderate Progression (METS) Increase by: 0.5 METS every: 3-5 sessions Angina with ex: No Target Heart Rate 100-133 age predicted 60%-80% Resistance Training: Yes Weight (pounds): 4 Reps: 12-15 Hypertension: No Hypertension controlled with: Diet Resting 108/80 Peak Exercise BP 140/84 Meds none Medications Scheduled Aspirin (Aspir 81), 1 TAB PO DAILY, (Reported) Calcium (Calcium), 500 MG PO DAILY, (Reported) Dicyclomine HCl (Dicyclomine HCl), 20 MG PO TID, (Reported) Duloxetine Hcl (Duloxetine HCl), 60 MG PO QPM, (Reported) Duloxetine Hcl (Duloxetine HCl), 30 CAP PO QAM, (Reported) Esomeprazole Magnesium (Esomeprazole Magnesium), 40 CAP PO DAILY, (Reported) Ferrous Gluconate (Ferrous Gluconate), 325 TAB PO BID, (Reported) Levothyroxine Sodium (Levoxyl), 125 MCG PO DAILY, (Reported) Magnesium Oxide (Magnesium), 400 CAP PO DAILY, (Reported) Rosuvastatin Calcium (Crestor), 5 MG PO DAILY, (Reported) Sucralfate (Sucralfate), 1 GRAM PO QID, (Reported) Miscellaneous Medications Cefdinir (Cefdinir), (Reported) Cholecalciferol (Vitamin D-3), 400 UNIT PO, (Reported) Multivit-Minerals/Ferrous Fum (Multivitamin Liquid), 1 LIQ PO, (Reported) Current BP 108/80 Med Change: Yes (BP meds discontinued) Education Goals Met: No (will continue to educate) Target Goals Individual exercise Rx (1) BP 140/90 or 130/80 if DM or CKD (1) Aerobic active 30+min 5 days per week (1) Nutrition Date: Dec 15, 2018 Assessment: Re-Assessment II (3) Stages of change: Preperation Med Change: No Diabetes Diabetes: No Medication Change: No Current Weight (pounds): 178 Intervention General Maintenance Technician Consult: No Nurse/patient discussion: Yes Dietary Goals pick healthier choices Diet Class: No Education Goals Met: No (progressing) Target goal LDL-C<100 if triglycerides are >200 Non-HDL-C should be <130 (1) LDL-C<70 for high risk patients (4) HbA1c<7% (1) BMI<25 Waist cir<40in M/<35in F (1) Education Date: Dec 15, 2018 Assessment: Re-Assessment II (3) Learning Barriers: ready Education Goals Met: No (progressing) Target Goals Complete cessation of tobacco use (1). Psychosocial Date: Dec 15, 2018 Assessment: Re-Assessment II (3) Stages of change: Preperation Med Change: No Stress Management Class: Yes Uses Stress Management Skills: Yes Education Goals Met: No (progressing) Target Goal Assess presence or absence of depression using a valid screening tool (1). Maximize coping skills (2). Positive support system (2). Patient/Program Goal Preventative Medication: Yes Aspirin, Yes Statin/OTR lipid Lowering Fall Risk Assess: Yes (negative for fall risk) Provider Assessment Session Number: 12 Provider Assessment: Proceed with rehab (progressing) Sienna Street RN Dec 15, 2018 14:59
--- NOTE | 2018-12-24 14:58 | CARECAPL ---
Assessment Account #s: Discharge General Diagnoses: AVR Date of event: Aug 18, 2018 Physician: Artur Aldridge MD Allergies: Coded Allergies: bee venom protein (honey bee) (Verified Allergy, Severe, 10/19/18) atorvastatin (Verified Allergy, Intermediate, HIVES, 09/26/18) hives methimazole (Verified Allergy, Intermediate, hives, 08/14/18) Date Entered Program: Sep 26, 2018 Risk strat for cardiac event: High Exercise Date: Dec 24, 2018 Assessment: Followup/Discharge Stages of change: Preperation Exercise Prescription Plan educate on cardiovascular disease and increase endurance, strength and fl exibility through monitored exercise program. Modalities initiated: Treadmill (speed 2.8 incline 3.0 for 15 minutes mets 4.3 RPE 2.5), Nustep (resistance of 6 for 15 minutes mets 5.5 RPE 3.5), Arm Aerometer (resistance of 3.0 for 10 minutes mets 3.2 RPE 3), Dumbells (5lb 2 sets of 15 reps RPE 3), Recumbent Bike (Resistance of 3 for 10 minutes mets 3.7 RPE 3.5) Frequency: 1-2 Duration (Minutes) 30 - 60 minutes total exercise a day. 15 - 20 work intervals in minutes. PRN rest intervals in minutes. Functional Capacity Goal Sustained Metabolic Equivalent of a task (MET) goal of 4.5-5.5 for 15-20 minutes. Intensity: 3-Moderate Progression (METS) Increase by: 0.5 METS every: 3-5 sessions Angina with ex: No Target Heart Rate 100-133 age prediction of 60%-80% Resistance Training: Yes Weight (pounds): 5 Reps: 12-15 Medications Scheduled Aspirin (Aspir 81), 1 TAB PO DAILY, (Reported) Calcium (Calcium), 500 MG PO DAILY, (Reported) Dicyclomine HCl (Dicyclomine HCl), 20 MG PO TID, (Reported) Duloxetine Hcl (Duloxetine HCl), 60 MG PO QPM, (Reported) Duloxetine Hcl (Duloxetine HCl), 30 CAP PO QAM, (Reported) Esomeprazole Magnesium (Esomeprazole Magnesium), 40 CAP PO DAILY, (Reported) Ferrous Gluconate (Ferrous Gluconate), 325 TAB PO BID, (Reported) Levothyroxine Sodium (Levoxyl), 125 MCG PO DAILY, (Reported) Magnesium Oxide (Magnesium), 400 CAP PO DAILY, (Reported) Rosuvastatin Calcium (Crestor), 5 MG PO DAILY, (Reported) Sucralfate (Sucralfate), 1 GRAM PO QID, (Reported) Miscellaneous Medications Cefdinir (Cefdinir), (Reported) Cholecalciferol (Vitamin D-3), 400 UNIT PO, (Reported) Multivit-Minerals/Ferrous Fum (Multivitamin Liquid), 1 LIQ PO, (Reported) Current BP 128/80 Med Change: Yes (lopressor was discontinued) Education Goals Met: Yes Target Goals Individual exercise Rx (1) BP 140/90 or 130/80 if DM or CKD (1) Aerobic active 30+min 5 days per week (1) Nutrition Date: Dec 24, 2018 Assessment: Followup/Discharge Stages of change: action Med Change: No Diabetes Diabetes: No Medication Change: No Weight Management Weight (lbs): 179.8 Height (inches): 68 Waist Circumference (Inches): 37.5 BMI: 27.21 Diet Access Tool: Rate your plate Score: 61 Current Weight (pounds): 179.8 Intervention Outside Plant Field Engineer Consult: No Nurse/patient discussion: Yes Dietary Goals eat healthier portions. Diet Class: Yes Referral to Diabetes education: No Referral to lipid clinic: No Referral to weight mangement p: No Education Goals Met: Yes Target goal LDL-C<100 if triglycerides are >200 Non-HDL-C should be <130 (1) LDL-C<70 for high risk patients (4) HbA1c<7% (1) BMI<25 Waist cir<40in M/<35in F (1) Education Date: Dec 24, 2018 Assessment: Followup/Discharge Knowledge Test Score: 9 Stages of change: action Family Support: Yes Tobacco use: No Quit: never smoked Education Goals Met: Yes Target Goals Complete cessation of tobacco use (1). Psychosocial Date: Dec 24, 2018 Assessment: Followup/Discharge Psych Test (Initial/Discharge) Tool Used: CESD Score: 2 Stages of change: action Intervention Physician Consult: No Physician Referral: No Med Change: No Stress Management Class: Yes Uses Stress Management Skills: Yes Education Goals Met: Yes Target Goal Assess presence or absence of depression using a valid screening tool (1). Maximize coping skills (2). Positive support system (2). Patient/Program Goal Preventative Medication: Yes Aspirin, Yes Statin/OTR lipid Lowering Fall Risk Assess: Yes (negative for fall risk) Provider Assessment Session Number: 14 Provider Assessment: Please add/change: (discharged from cardiac rehab) Sienna Street RN Dec 24, 2018 14:58
== END 2019-01-08 ==
LOC: M CR 11:19
PROVIDERS: ATTEND Internal Medicine Cardiovascular Disease
DX: I25.10 Atherosclerotic heart disease of native coronary artery without angina pectoris (principal); Z95.2 Presence of prosthetic heart valve

== ENCOUNTER → 2019-07-03 | Outpatient (REF) | payer BC ==
[2019-07-03 18:03] LABS: HEMATOCRIT 37.1 % (36.0-47.0); HEMOGLOBIN 12.3 g/dl (12.0-15.5); MEAN CORPUSCULAR HEMOGLOBIN 29.3 pg (27.0-33.0); MEAN CORPUSCULAR HGB CONC 33.2 g/dl (32.0-36.5); MEAN CORPUSCULAR VOLUME 88.3 fl (80.0-96.0); PLATELET COUNT, AUTOMATED 266 10^3/uL (150-450); WHITE BLOOD COUNT 6.6 10^3/uL (4.0-10.0)
[2019-07-03 18:37] LABS: ALBUMIN 3.5 GM/DL (3.2-5.2); ALT/SGPT 28 U/L (12-78); BILIRUBIN,TOTAL 0.2 MG/DL (0.2-1.0); BLOOD UREA NITROGEN 16 MG/DL (7-18); CALCIUM LEVEL 8.5 MG/DL (8.5-10.1); CARBON DIOXIDE LEVEL 27 MEQ/L (21-32); CHLORIDE LEVEL 106 MEQ/L (98-107); CREATININE FOR GFR 0.76 MG/DL (0.55-1.30); FREE T4 0.94 NG/DL (0.76-1.46); GLOMERULAR FILTRATION RATE > 60.0 (>51); GLUCOSE, FASTING 85 MG/DL (70-100); POTASSIUM SERUM 4.4 MEQ/L (3.5-5.1); SODIUM LEVEL 139 MEQ/L (136-145); THYROID STIMULATING HORMONE 0.809 uIU/ML (0.358-3.740); TOTAL PROTEIN 6.7 GM/DL (6.4-8.2); VITAMIN B12 LEVEL 667 PG/ML
[2019-07-03 18:38] LABS: FOLATE > 24.0 NG/ML
[2019-07-03 18:51] LABS: TOTAL 25(OH) VITAMIN D 25.2 NG/ML (30.0-100.0)
== END ==
LOC: M SFHCADAM 16:16
PROVIDERS: ATTEND Physician Assistant
DX: R63.5 Abnormal weight gain (principal); F32.5 Major depressive disorder, single episode, in full remission; E03.9 Hypothyroidism, unspecified; Z98.84 Bariatric surgery status

== ENCOUNTER → 2019-08-28 | Outpatient (CLI) | payer BC ==
--- NOTE | 2019-08-28 17:18 | REP ---
REASON: Atraumatic hip pain. FINDINGS: The hip joint space is symmetric and relatively well maintained. T here is no acute or destructive osseous lesion. Chronic changes are seen involving the pubic symphysis. Electronically Signed by Ivan Schwarz DO 08/31/2019 07:42 A
== END ==
LOC: M ADAMS 15:42
PROVIDERS: ATTEND Physician Assistant
DX: M25.551 Pain in right hip (principal)

== ENCOUNTER → 2019-12-23 | Outpatient (REF) | payer BC ==
[~2019-12-23] MED LIST changes: -ASPI81TA85 PO; +ASPI81TA86 PO
[2019-12-23 17:38] LABS: APPEARANCE, URINE CLEAR (CLEAR); BACTERIA, URINE AUTO NEGATIVE (NEGATIVE); BILIRUBIN, URINE AUTO NEGATIVE (NEGATIVE); BLOOD, URINE BLOOD NEGATIVE (NEGATIVE); COLOR, URINE STRAW (YELLOW); GLUCOSE, URINE (UA) AUTO NEGATIVE (NEGATIVE); KETONE, URINE AUTO NEGATIVE (NEGATIVE); LEUKOCYTE ESTERASE, URINE AUTO NEGATIVE (NEGATIVE); NITRITE, URINE AUTO NEGATIVE (NEGATIVE); PROTEIN, URINE AUTO NEGATIVE (NEGATIVE); RBC, URINE AUTO 1 /HPF (0-3); SPECIFIC GRAVITY URINE AUTO 1.003 (1.002-1.035); SQUAMOUS EPITHELIAL CELL UR AU 0 /HPF (0-6); UROBILINOGEN, URINE AUTO 0.2 mg/dL (0.0-2.0); WBC, URINE AUTO 2 /HPF (0-3)
== END ==
LOC: M SFHCADAM 15:32
PROVIDERS: ATTEND Family Medicine
DX: R30.0 Dysuria (principal)

== ENCOUNTER → 2020-02-16 | Outpatient (CLI) | payer SELFPAY | LOC: M LABSMTC 10:16 | PROVIDERS: ATTEND Pediatrics | DX: Z11.59 Encounter for screening for other viral diseases (principal) ==

== ENCOUNTER → 2020-08-17 | Outpatient (REF) | payer BC ==
[~2020-08-17] MED LIST changes: +FERR324T21 PO; -FERR325T16 PO
[2020-08-17 13:58] LABS: HEMATOCRIT 38.5 % (36.0-47.0); HEMOGLOBIN 12.6 g/dl (12.0-15.5); MEAN CORPUSCULAR HEMOGLOBIN 29.5 pg (27.0-33.0); MEAN CORPUSCULAR HGB CONC 32.7 g/dl (32.0-36.5); MEAN CORPUSCULAR VOLUME 90.2 fl (80.0-96.0); PLATELET COUNT, AUTOMATED 254 10^3/uL (150-450); RED BLOOD COUNT 4.27 10^6/uL (4.00-5.40); WHITE BLOOD COUNT 5.6 10^3/uL (4.0-10.0)
[2020-08-17 15:29] LABS: ALBUMIN 3.3 GM/DL (3.2-5.2); ALT/SGPT 17 U/L (12-78); BILIRUBIN,TOTAL 0.4 MG/DL (0.2-1.0); BLOOD UREA NITROGEN 14 MG/DL (7-18); CALCIUM LEVEL 8.8 MG/DL (8.5-10.1); CARBON DIOXIDE LEVEL 28 MEQ/L (21-32); CHLORIDE LEVEL 106 MEQ/L (98-107); CHOLESTEROL LEVEL 155 MG/DL (<200); CHOLESTEROL RISK RATIO 2.313 (<5); CREATININE FOR GFR 0.87 MG/DL (0.55-1.30); FREE T4 1.12 NG/DL (0.76-1.46); GLOMERULAR FILTRATION RATE > 60.0 (>51); GLUCOSE, FASTING 85 MG/DL (70-100); HDL CHOLESTEROL 67 MG/DL (>40); LDL CHOLESTEROL 71 MG/DL (<100); NON-HDL-C 88 MG/DL; POTASSIUM SERUM 4.5 MEQ/L (3.5-5.1); SODIUM LEVEL 141 MEQ/L (136-145); TOTAL PROTEIN 6.4 GM/DL (6.4-8.2); TRIGLYCERIDES LEVEL 84 MG/DL (<150)
== END ==
LOC: M SFHCADAM 08:24
PROVIDERS: ATTEND Family Medicine
DX: E89.0 Postprocedural hypothyroidism (principal); Z13.1 Encounter for screening for diabetes mellitus; E66.09 Other obesity due to excess calories; Z13.220 Encounter for screening for lipoid disorders; E55.9 Vitamin D deficiency, unspecified

== ENCOUNTER → 2020-08-25 | Outpatient (REF) | payer BC | LOC: M SFHCADAM 12:34 | PROVIDERS: ATTEND Physician Assistant | DX: Z12.4 Encounter for screening for malignant neoplasm of cervix (principal); Z77.9 Other contact with and (suspected) exposures hazardous to health | CPT/HCPCS: 87624; G0123 ==

== ENCOUNTER → 2020-09-04 | Outpatient (REF) | payer BC | LOC: M LAB REF 20:23 | PROVIDERS: ATTEND Physician Assistant | DX: N39.0 Urinary tract infection, site not specified (principal) ==

== ENCOUNTER → 2020-11-08 | Outpatient (REF) | payer BC | LOC: M WUC 19:42 | PROVIDERS: ATTEND Physician Assistant | DX: R30.0 Dysuria (principal) ==

== ENCOUNTER → 2022-03-30 | Outpatient (REF) | payer BC ==
[~2022-03-30] MED LIST changes: -CEFD1CAP8; +CEFD300C41; -DICY20TA11 PO; +DICY20TA20 PO
[2022-03-30 15:06] LABS: MAGNESIUM LEVEL 2.2 MG/DL (1.8-2.4)
[2022-03-30 15:07] LABS: FREE T4 1.54 NG/DL (0.89-1.76); HEMATOCRIT 39.8 % (36.0-47.0); MEAN CORPUSCULAR HEMOGLOBIN 30.1 pg (27.0-33.0); MEAN CORPUSCULAR HGB CONC 32.7 g/dl (32.0-36.5); MEAN CORPUSCULAR VOLUME 92.1 fl (80.0-96.0); PLATELET COUNT, AUTOMATED 227 10^3/uL (150-450); RED BLOOD COUNT 4.32 10^6/uL (4.00-5.40); WHITE BLOOD COUNT 4.9 10^3/uL (4.0-10.0)
[2022-03-30 15:08] LABS: ALBUMIN 3.8 G/DL (3.2-5.2); BILIRUBIN,TOTAL 0.6 MG/DL (0.3-1.2); CALCIUM LEVEL 9.4 MG/DL (8.5-10.1); CHOLESTEROL RISK RATIO 2.24 (<5); CREATININE FOR GFR 1.06 MG/DL (0.55-1.30); FERRITIN 72.4 NG/ML (7.3-270.7); GLOMERULAR FILTRATION RATE 56.9 (>51); HDL CHOLESTEROL 73.1 MG/DL (>40); LDL CHOLESTEROL 76.3 MG/DL (<100); PERCENT SATURATION 32.8 % (13.2-45.0); POTASSIUM SERUM 4.5 MMOL/L (3.5-5.1); THYROID STIMULATING HORMONE 0.415 uIU/ML (0.55-4.78); TOTAL PROTEIN 6.6 G/DL (5.7-8.2)
[2022-03-30 15:09] LABS: FOLATE 19.6 NG/ML (>5.4)
[2022-03-30 15:10] LABS: TOTAL 25(OH) VITAMIN D 59.6 NG/ML (20.0-100.0)
== END ==
LOC: M SFHCADAM 09:37
PROVIDERS: ATTEND Physician Assistant
DX: R11.0 Nausea (principal); E78.49 Other hyperlipidemia; G43.109 Migraine with aura, not intractable, without status migrainosus; F32.9 Major depressive disorder, single episode, unspecified; Z98.84 Bariatric surgery status; E89.0 Postprocedural hypothyroidism; R00.2 Palpitations

== ENCOUNTER → 2022-05-30 | Outpatient (REF) | payer BC ==
[2022-05-30 14:07] LABS: THYROID STIMULATING HORMONE 1.114 uIU/ML (0.55-4.78)
[2022-05-30 14:08] LABS: FREE T4 1.45 NG/DL (0.89-1.76)
== END ==
LOC: M SFHCADAM 09:55
PROVIDERS: ATTEND Physician Assistant
DX: E03.9 Hypothyroidism, unspecified (principal)

== ENCOUNTER → 2022-09-18 | Outpatient (REF) | payer BC ==
[2022-09-18 14:23] LABS: FREE T4 1.49 NG/DL (0.89-1.76); THYROID STIMULATING HORMONE 0.93 uIU/ML (0.55-4.78)
== END ==
LOC: M SFHCADAM 08:16
PROVIDERS: ATTEND Physician Assistant
DX: R63.5 Abnormal weight gain (principal); Z98.84 Bariatric surgery status; E03.9 Hypothyroidism, unspecified

== ENCOUNTER → 2022-10-16 | Outpatient (CLI) | payer BC ==
[2022-10-16 17:37] LABS: ALBUMIN 4.1 G/DL (3.2-5.2); ALKALINE PHOSPHATASE 77 U/L (46-116); ALT/SGPT 22 U/L (7.0-40); AST/SGOT 14 U/L (<34); BILIRUBIN,TOTAL 0.4 MG/DL (0.3-1.2); BLOOD UREA NITROGEN 12 MG/DL (9-23); CARBON DIOXIDE LEVEL 28 MMOL/L (20-31); CHLORIDE LEVEL 104 MMOL/L (98-107); CREATININE FOR GFR 0.93 MG/DL (0.55-1.30); GLOMERULAR FILTRATION RATE > 60.0 (>51); GLUCOSE, FASTING 107 MG/DL (60-100); MAGNESIUM LEVEL 2.3 MG/DL (1.8-2.4); POTASSIUM SERUM 4.3 MMOL/L (3.5-5.1); SODIUM LEVEL 138 MMOL/L (136-145); THYROID STIMULATING HORMONE 0.887 uIU/ML (0.55-4.78); TOTAL PROTEIN 6.8 G/DL (5.7-8.2)
[2022-10-16 17:39] LABS: BASO # 0.1 10^3/uL (0.0-0.2); BASO % 1.1 % (0.0-1.0); EOS # 0.2 10^3/uL (0.0-0.5); EOS % 3.2 % (0.0-3.0); FREE T4 1.38 NG/DL (0.89-1.76); HEMOGLOBIN 12.1 g/dl (12.0-15.5); LYMPH # 1.6 10^3/uL (1.5-5.0); LYMPH % 29.4 % (24.0-44.0); MEAN CORPUSCULAR HGB CONC 32.7 g/dl (32.0-36.5); MEAN CORPUSCULAR VOLUME 91.6 fl (80.0-96.0); MONO # 0.4 10^3/uL (0.0-0.8); MONO % 6.6 % (2.0-8.0); NEUTROPHILS # 3.1 10^3/uL (1.5-8.5); NEUTROPHILS % 59.5 % (36.0-66.0); PLATELET COUNT, AUTOMATED 249 10^3/uL (150-450); RED BLOOD COUNT 4.04 10^6/uL (4.00-5.40); WHITE BLOOD COUNT 5.3 10^3/uL (4.0-10.0)
== END ==
LOC: M WUC 13:27
PROVIDERS: ATTEND Nurse Practitioner Family
DX: R42 Dizziness and giddiness (principal)

== ENCOUNTER → 2023-01-29 | Outpatient (CLI) | payer BC ==
[~2023-01-29] MED LIST changes: -CEFD300C41; +CEFD300C42
[2023-01-29 16:03] LABS: ALBUMIN 3.8 G/DL (3.2-5.2); BILIRUBIN,DIRECT 0.2 MG/DL (<0.4); BILIRUBIN,TOTAL 0.6 MG/DL (0.3-1.2); TOTAL PROTEIN 6.6 G/DL (5.7-8.2)
== END ==
LOC: M WUC 12:15
PROVIDERS: ATTEND Physician Assistant
DX: R10.13 Epigastric pain (principal); R14.2 Eructation

== ENCOUNTER → 2023-02-08 | Outpatient (CLI) | payer BC | LOC: M RAD 07:37 | PROVIDERS: ATTEND Physician Assistant | DX: R10.13 Epigastric pain (principal); R14.2 Eructation; Z90.49 Acquired absence of other specified parts of digestive tract ==

== ENCOUNTER → 2023-03-15 | Outpatient (REF) | payer BC ==
[~2023-03-15] MED LIST changes: +CEFD1CAP9; -CEFD300C42
[2023-03-15 13:26] LABS: APPEARANCE, URINE CLEAR (CLEAR); BACTERIA, URINE AUTO NEGATIVE (NEGATIVE); BILIRUBIN, URINE AUTO NEGATIVE (NEGATIVE); BLOOD, URINE BLOOD NEGATIVE (NEGATIVE); COLOR, URINE YELLOW (YELLOW); GLUCOSE, URINE (UA) AUTO NEGATIVE (NEGATIVE); KETONE, URINE AUTO NEGATIVE (NEGATIVE); LEUKOCYTE ESTERASE, URINE AUTO TRACE (NEGATIVE); NITRITE, URINE AUTO NEGATIVE (NEGATIVE); PROTEIN, URINE AUTO NEGATIVE (NEGATIVE); RBC, URINE AUTO 0 /HPF (0-3); SPECIFIC GRAVITY URINE AUTO 1.004 (1.002-1.035); SQUAMOUS EPITHELIAL CELL UR AU 0 /HPF (0-6); UROBILINOGEN, URINE AUTO 0.2 mg/dL (0.0-2.0); WBC, URINE AUTO 0 /HPF (0-3)
== END ==
LOC: M LAB REF 12:29
PROVIDERS: ATTEND Physician Assistant
DX: N39.0 Urinary tract infection, site not specified (principal)

== ENCOUNTER → 2023-05-01 | Outpatient (REF) | payer BC ==
[2023-05-01 13:09] LABS: BASO # 0.1 10^3/uL (0.0-0.2); BASO % 1.1 % (0.0-1.0); EOS # 0.2 10^3/uL (0.0-0.5); EOS % 4.3 % (0.0-3.0); HEMATOCRIT 40.3 % (36.0-47.0); HEMOGLOBIN 13.3 g/dl (12.0-15.5); LYMPH # 1.8 10^3/uL (1.5-5.0); LYMPH % 32.6 % (24.0-44.0); MEAN CORPUSCULAR HEMOGLOBIN 30.2 pg (27.0-33.0); MEAN CORPUSCULAR VOLUME 91.6 fl (80.0-96.0); MONO # 0.4 10^3/uL (0.0-0.8); MONO % 7.3 % (2.0-8.0); NEUTROPHILS # 3.1 10^3/uL (1.5-8.5); NEUTROPHILS % 54.5 % (36.0-66.0); PLATELET COUNT, AUTOMATED 241 10^3/uL (150-450); WHITE BLOOD COUNT 5.6 10^3/uL (4.0-10.0)
[2023-05-01 13:40] LABS: ALBUMIN 3.8 G/DL (3.2-5.2); BILIRUBIN,TOTAL 0.6 MG/DL (0.3-1.2); CALCIUM LEVEL 9.3 MG/DL (8.5-10.1); CHOLESTEROL RISK RATIO 2.11 (<5); CREATININE FOR GFR 1.03 MG/DL (0.55-1.30); GLOMERULAR FILTRATION RATE 58.4 (>51); HDL CHOLESTEROL 77.5 MG/DL (>40); LDL CHOLESTEROL 70.9 MG/DL (<100); NON-HDL-C 86.5 MG/DL; POTASSIUM SERUM 4.6 MMOL/L (3.5-5.1); THYROID STIMULATING HORMONE 1.093 uIU/ML (0.55-4.78); TOTAL 25(OH) VITAMIN D 72.3 NG/ML (20.0-100.0); TOTAL PROTEIN 6.5 G/DL (5.7-8.2)
[2023-05-01 13:41] LABS: FOLATE 22.6 NG/ML (>5.4); FREE T4 1.41 NG/DL (0.89-1.76)
== END ==
LOC: M SFHCADAM 07:57
PROVIDERS: ATTEND Physician Assistant
DX: R63.5 Abnormal weight gain (principal); Z98.84 Bariatric surgery status; E03.9 Hypothyroidism, unspecified; L98.9 Disorder of the skin and subcutaneous tissue, unspecified; F32.5 Major depressive disorder, single episode, in full remission; E78.49 Other hyperlipidemia

== ENCOUNTER → 2023-05-02 | Outpatient (CLI) | payer BC | LOC: M ADAMS 15:19 | PROVIDERS: ATTEND Physician Assistant | DX: M16.0 Bilateral primary osteoarthritis of hip (principal); M85.89 Other specified disorders of bone density and structure, multiple sites ==

== ENCOUNTER → 2023-05-09 | Outpatient (REF) | payer BC | LOC: M LAB REF 13:06 → M SFHCDERM 13:06 | PROVIDERS: ATTEND Nurse Practitioner Family | DX: D49.2 Neoplasm of unspecified behavior of bone, soft tissue, and skin (principal) ==

== ENCOUNTER → 2024-04-02 | Outpatient (CLI) | payer OTHER ==
[~2024-04-02] MED LIST changes: +ESOM1CAP20 PO; -ESOM1CAP5 PO
== END ==
LOC: M RAD 07:22
PROVIDERS: ATTEND Physician Assistant
DX: R07.89 Other chest pain (principal); Z95.2 Presence of prosthetic heart valve; Z18.10 Retained metal fragments, unspecified

== ENCOUNTER → 2024-04-30 | Outpatient (REF) | payer OTHER ==
[2024-04-30 14:45] LABS: BASO # 0.1 10^3/uL (0.0-0.2); BASO % 1.4 % (0.0-1.0); EOS # 0.3 10^3/uL (0.0-0.5); EOS % 5.8 % (0.0-3.0); HEMATOCRIT 39.5 % (36.0-47.0); HEMOGLOBIN 13.1 g/dl (12.0-15.5); LYMPH # 1.6 10^3/uL (1.5-5.0); LYMPH % 36.7 % (24.0-44.0); MEAN CORPUSCULAR HGB CONC 33.2 g/dl (32.0-36.5); MEAN CORPUSCULAR VOLUME 90.6 fl (80.0-96.0); MONO # 0.4 10^3/uL (0.0-0.8); MONO % 8.5 % (2.0-8.0); NEUTROPHILS # 2.1 10^3/uL (1.5-8.5); NEUTROPHILS % 47.4 % (36.0-66.0); PLATELET COUNT, AUTOMATED 234 10^3/uL (150-450); RED BLOOD COUNT 4.36 10^6/uL (4.00-5.40); WHITE BLOOD COUNT 4.3 10^3/uL (4.0-10.0)
[2024-04-30 15:19] LABS: ALBUMIN 3.6 G/DL (3.2-5.2); ALKALINE PHOSPHATASE 78 U/L (35-104); ALT/SGPT 23 U/L (7.0-40); AST/SGOT 18 U/L (<34); BILIRUBIN,TOTAL 0.5 MG/DL (0.3-1.2); BLOOD UREA NITROGEN 17 MG/DL (9-23); C REACTIVE PROTEIN QUANTITATIV < 0.50 MG/DL (<1.0); CALCIUM LEVEL 9.4 MG/DL (8.3-10.6); CARBON DIOXIDE LEVEL 27 MMOL/L (20-31); CHLORIDE LEVEL 104 MMOL/L (98-107); CHOLESTEROL LEVEL 169 MG/DL (<200); CREATININE FOR GFR 1.13 MG/DL (0.55-1.30); FERRITIN 34.8 NG/ML (7.3-270.7); FOLATE > 24.0 NG/ML (>5.4); GLOMERULAR FILTRATION RATE 52.3 (>45); GLUCOSE, FASTING 89 MG/DL (74-106); HDL CHOLESTEROL 84.4 MG/DL (>40); LDL CHOLESTEROL 72.4 MG/DL (<100); NON-HDL-C 84.6 MG/DL; POTASSIUM SERUM 4.4 MMOL/L (3.5-5.1); SODIUM LEVEL 140 MMOL/L (136-145); TOTAL PROTEIN 6.7 G/DL (5.7-8.2); TRIGLYCERIDES LEVEL 61 MG/DL (<150)
[2024-04-30 15:20] LABS: FREE T4 1.67 NG/DL (0.89-1.76); VITAMIN B12 LEVEL 364 PG/ML (211-911)
[2024-04-30 15:21] LABS: RHEUMATOID FACTOR QUANT 5.3 IU/ML (<14)
[2024-04-30 15:42] LABS: HEMOGLOBIN A1c 5.1 % (4.0-6.0)
[2024-05-01 23:23] LABS: CYCLIC CITRULLINATED PEPTIDE < 16 UNITS (<20)
[2024-05-04 17:17] LABS: ANA PATTERN Nuclear, Speckled (NEGATIVE); ANA SCREEN, IFA POSITIVE (NEGATIVE)
== END ==
LOC: M SFHCADAM 08:00
PROVIDERS: ATTEND Physician Assistant
DX: M54.2 Cervicalgia (principal); M18.0 Bilateral primary osteoarthritis of first carpometacarpal joints; Z98.84 Bariatric surgery status; E03.9 Hypothyroidism, unspecified; E78.49 Other hyperlipidemia; Z95.2 Presence of prosthetic heart valve; F32.5 Major depressive disorder, single episode, in full remission

== ENCOUNTER → 2024-04-30 | Outpatient (CLI) | payer OTHER | LOC: M ADAMS 08:09 | PROVIDERS: ATTEND Physician Assistant | DX: M18.2 Bilateral post-traumatic osteoarthritis of first carpometacarpal joints (principal) ==

== ENCOUNTER → 2024-05-29 | Outpatient (CLI) | payer OTHER | LOC: M RAD 12:47 | PROVIDERS: ATTEND Physician Assistant | DX: N18.31 Chronic kidney disease, stage 3a (principal) ==

== ENCOUNTER → 2024-06-11 | Outpatient (REF) | payer OTHER ==
[2024-06-11 14:13] LABS: CREATININE, URINE 30.6 MG/DL
[2024-06-11 14:15] LABS: MALB URINE SIEMENS < 3.0 MG/L
== END ==
LOC: M SFHCADAM 12:54
PROVIDERS: ATTEND Physician Assistant
DX: N18.31 Chronic kidney disease, stage 3a (principal); R76.8 Other specified abnormal immunological findings in serum

== ENCOUNTER → 2024-06-16 | Outpatient (REF) | payer OTHER ==
[2024-06-17 13:24] LABS: ALBUMIN 3.9 G/DL (3.2-5.2); BILIRUBIN,TOTAL 0.4 MG/DL (0.3-1.2); CALCIUM LEVEL 9.5 MG/DL (8.3-10.6); CREATININE FOR GFR 1.03 MG/DL (0.55-1.30); GLOMERULAR FILTRATION RATE 62.3 (>45); POTASSIUM SERUM 4.8 MMOL/L (3.5-5.1); TOTAL PROTEIN 6.8 G/DL (5.7-8.2)
[2024-06-19 11:32] LABS: ANA PATTERN Nuclear, Speckled (NEGATIVE); ANA PATTERN 2 Mitotic, Centrosome; ANA SCREEN, IFA POSITIVE (NEGATIVE)
== END ==
LOC: M SFHCADAM 15:40
PROVIDERS: ATTEND Physician Assistant
DX: T78.40XD Allergy, unspecified, subsequent encounter (principal); R76.8 Other specified abnormal immunological findings in serum; N18.31 Chronic kidney disease, stage 3a

== ENCOUNTER → 2024-10-29 | Outpatient (REF) | payer OTHER ==
[~2024-10-29] MED LIST changes: +ESTR4INS VG; -IMVE4SUP VG
[2024-10-29 14:19] LABS: PLATELET COUNT, AUTOMATED 216 10^3/uL (150-450)
[2024-10-29 14:40] LABS: ALT/SGPT 22.0 U/L (7.0-40); AST/SGOT 23.0 U/L (<34); CALCIUM LEVEL 8.9 MG/DL (8.3-10.6); CARBON DIOXIDE LEVEL 26.0 MMOL/L (20-31); CHLORIDE LEVEL 104.0 MMOL/L (98-107); CREATININE FOR GFR 1.03 MG/DL (0.55-1.30); GLOMERULAR FILTRATION RATE 62.3 (>45); POTASSIUM SERUM 4.1 MMOL/L (3.5-5.1); SODIUM LEVEL 142.0 MMOL/L (136-145)
[2024-10-30 12:23] LABS: SSA SJOGRENS A <1.0 NEG AI (<1.0 NEG); SSB SJOGRENS B <1.0 NEG AI (<1.0 NEG)
== END ==
LOC: M SFHCADAM 08:25
PROVIDERS: ATTEND Physician Assistant
DX: R76.8 Other specified abnormal immunological findings in serum (principal); N18.31 Chronic kidney disease, stage 3a

== ENCOUNTER 2024-12-14 12:53 | Emergency (ER) | payer OTHER ==
[~2024-12-14] VITALS: Ht 172.7 cm; Wt 72.7 kg
[2024-12-14] MEDS ORDERED: BUPR75TA5 (14:02)
[2024-12-14] MEDS ORDERED: BUPR-766 (14:02)
[2024-12-14] MEDS ORDERED: EPIN0.3I11 (14:02)
[2024-12-14] MEDS ORDERED: CLON0.5T2 (14:02)
[2024-12-14] MEDS ORDERED: K2 P1TAB PO (14:09)
[2024-12-14 16:00] VITALS: BP 129/73; TEMP 99.1; O2SAT 97
== END 2024-12-14 16:16 | disposition home or self-care (01) ==
LOC: M ED 12:53 → EDBD 12:53 → M ED 16:16
DX: T63.441A Toxic effect of venom of bees, accidental (unintentional), initial encounter (principal); Z79.82 Long term (current) use of aspirin; Z79.899 Other long term (current) drug therapy; Z88.8 Allergy status to other drugs, medicaments and biological substances; Z91.030 Bee allergy status

== ENCOUNTER → 2024-12-18 | Outpatient (CLI) | payer OTHER ==
[~2024-12-18] MED LIST changes: +BUPR-766; +BUPR75TA5; +CLON0.5T2; +EPIN0.3I11; +K2 P1TAB PO
== END ==
LOC: M PLARAD 08:38
PROVIDERS: ATTEND Physician Assistant
DX: M54.2 Cervicalgia (principal); G89.29 Other chronic pain

== ENCOUNTER → 2025-01-15 | Outpatient (REF) | payer OTHER ==
[~2025-01-15] MED LIST changes: +BUPR-363; -BUPR75TA5
== END ==
LOC: M LAB REF 14:17
PROVIDERS: ATTEND Physician Assistant
DX: N39.0 Urinary tract infection, site not specified (principal); N77.1 Vaginitis, vulvitis and vulvovaginitis in diseases classified elsewhere